=== PATIENT | male | born 1965 | race Caucasian/White ===

== ENCOUNTER 2024-05-03 12:33 | Outpatient (AMB) | payer OTHER, SELFPAY ==
--- NOTE | 2024-05-03 12:59 | A.OFFVIS_ITS ---
Vital Signs 05/03/24 13:20 Height 5 ft 7 in Weight 230 lb 2.601 oz BMI 36.0 BP 128/78 Blood Pressure Location Rt brachial Position Sitting Pulse 88 Pulse Source Pulse Oximeter Pulse Oximetry (%) 95 Oxygen Delivery Method Room Air Intake Visit Reasons: [place] screening, R/S x2 Intake Note: NEW PATIENT for 2nd lifetime colo recall. Last 2018 w/ Dr. Moyer. Chief Complaint; Pt denies any GI concerns at this time. Recall colo. Drafter Refrigeration Required: No Accompanied by: Self / Same As Patient Allergies gabapentin [GABAPENTIN] Allergy (Unknown, Unverified 05/03/24 12:59) HIVES, rash HPI HPI [place] screening, R/S x2: Details: 58 ear old? male here today for pre colonoscopy screening.? Patient was sent to us by his PCP.? Last colonoscopy in August of 2018, tubular adenoma found and recommendation was for 5 year follow-up.? Patient denies any gastrointestinal symptoms in the past or at present.? Denies any personal or family history of gastrointestinal disease, colon polyps, or CRC.? Denies history of difficulty with sedation or anesthesia in the past.? Negative for history of sleep apnea.? Denies any history of cardiac, renal, pulmonary, or hepatic disease.?? No history of infectious? diseases like hepatitis A, B, C, HIV or tuberculosis.? Patient is not on any anticoagulation. Patient does admit that in the past couple weeks he has been experiencing abdominal bloating and more frequent stooling. Denies any melena, hematochezia, unintentional weight loss or ribbon like stools. Denies any abdominal pain or discomfort. Denies dyspepsia, dysphagia or odynophagia [facility] Medical History Vitamin B 12 deficiency Erectile dysfunction Chronic low back pain Surgical History (Updated 05/03/24 @ 13:10 by DERIC Willis) History of colonoscopy Social History Alcohol intake: never Patient Tobacco Use Status: Former Tobacco user Substance Use Type: Marijuana Assessment & Plan Assessment & Plan (1) Screen for colon cancer: Code(s): Z12.11 - Encounter for screening for malignant neoplasm of colon (2) Postprandial abdominal bloating: Code(s): R14.0 - Abdominal distension (gaseous) Plan Patient denies any cardiac or respiratory symptoms.? Recent postprandial abdominal bloating and more frequent stooling. Patient will increase fiber intake. However discussed with patient that before procedure low fiber diet recommended. Denies any issues with anesthesia in the past.? Denies any history of sleep apnea.? No history infectious diseases in the past or present.? Not on any anticoagulation therapy.? No family or personal history of colon cancer or polyps.? Patient denies melena, hematochezia, unintentional weight loss or ribbon like stools.? Discussed at length the pre-procedure,? prep, diet & medications as well as what to expect prior, during and after the procedure.?? Stressed the importance of good bowel prep.? Recommended the use of Vaseline or Calmoseptine OTC & baby wipes with bowel movements to promote comfort.? ?Patient verbalizes understanding and agrees to plan of care.? He was given the opportunity to ask questions and all questions answered.? We will see him after the procedure.? Medications: New bisacodyl (Dulcolax (bisacodyl)) take 4 tabs at noon the day before your colonoscopy 20 mg (4 x 5 mg) PO ONCE 1 day 4 tabs 0RF Z12.11 - Encounter for screening for malignant neoplasm of colon polyethylene glycol 3350 (Miralax) As directed by gastroenterology department at [facility] 238 grams PO ONCE 238 grams 0RF Z12.11 - Encounter for screening for malignant neoplasm of colon Coding Level of Care Code New Pt Level 3 (45040) Diagnoses Screen for colon cancer Z12.11 Postprandial abdominal bloating R14.0 Time Spent (min) 40 Comment 30 minutes spent with patient and additional 10 minutes spent reviewing his records
[2024-05-03 13:20] VITALS: BP 128/78; PULSE 88; O2SAT 95; BMI 36.0
== END 2024-05-03 13:44 | disposition home or self-care (01) ==
LOC: HO.HGI 12:34
PROVIDERS: PCP Internal Medicine; Visit Provider Nurse Practitioner Family
DX: R14.0 Abdominal distension (gaseous) (principal); Z12.11 Encounter for screening for malignant neoplasm of colon
CPT/HCPCS: 99203

== ENCOUNTER → 2024-05-03 12:33 | Outpatient (BNVA) | payer OTHER, SELFPAY | PROVIDERS: PCP Internal Medicine; Visit Provider Nurse Practitioner Family | DX: Z12.11 Encounter for screening for malignant neoplasm of colon (principal); R14.0 Abdominal distension (gaseous) | CPT/HCPCS: 99202 ==